=== PATIENT | female | born 1995 | race Caucasian/White ===

== ENCOUNTER 2016-12-21 06:00 | Inpatient (IN) | payer OTHER ==
[~2016-12-21] VITALS: Ht 167.6 cm; Wt 106.0 kg
[~2016-12-21 06:00] MED LIST: DICY10CA60 PO; ONDA4TAB35 PO; PREN-29 PO
[2016-12-21 06:47] VITALS: Ht 167.6 cm; Wt 106.0 kg
[2016-12-21 07:00] VITALS: BP 125/79; PULSE 86; RESP 16
[2016-12-21] MEDS ORDERED: AMPICILLIN 2 GM/NS (PMX) 100 ML IV ONE (07:00)
[2016-12-21] MEDS ORDERED: OXYTOCIN 30 UNITS/LR 500 ML IV SCH ×2 (07:00)
[2016-12-21] MEDS ORDERED: LIDOCAINE 1% (MPF) 30 ML INJ INJ PRN (07:00)
[2016-12-21] MEDS ORDERED: BUTORPHANOL 2 MG INJ IV PRN (07:00)
[2016-12-21] MEDS ORDERED: METHYLERGONOVINE 0.2 MG INJ IM PRN (07:00)
[2016-12-21] MEDS ORDERED: MISOPROSTOL 200 MCG TAB PR PRN (07:00)
[2016-12-21] MEDS ORDERED: OXYTOCIN 30 UNITS/LR 500 ML IV PRN (07:00)
[2016-12-21] MEDS ORDERED: CARBOPROST 250 MCG INJ IM PRN (07:00)
[2016-12-21] MEDS: LACTATED RINGER'S 1,000 ML IV SCH ×2 (07:02→14:56)
[2016-12-21 07:18] LABS: BASOPHILS % 0.1 % (0.0-2.0); EOSINOPHILS # 0.1 10^3/ul (0.0-0.5); EOSINOPHILS % 0.9 % (0.0-7.0); HEMATOCRIT 31.4 % (37.0-47.0); HEMOGLOBIN 10.7 g/dl (12.0-16.0); LYMPHOCYTES # 1.5 10^3/ul (0.8-2.9); LYMPHOCYTES % 22.3 % (15.0-51.0); MEAN CORPUSCULAR HEMOGLOBIN 28.9 pg (29.0-33.0); MEAN CORPUSCULAR HGB CONC 34.1 g/dl (32.0-37.0); MEAN CORPUSCULAR VOLUME 84.9 fl (82.0-101.0); MEAN PLATELET VOLUME 11.9 fl (7.4-10.4); MONOCYTE # 0.6 10^3/ul (0.3-0.9); MONOCYTES % 8.6 % (0.0-11.0); NEUTROPHIL # 4.6 10^3/ul (1.6-7.5); NEUTROPHILS % 67.1 % (39.0-77.0); PLATELET COUNT 213 10^3/UL (140-415); RED CELL DISTRIBUTION WIDTH 13.9 % (11.5-14.5); WHITE BLOOD COUNT 6.9 10^3/ul (4.8-10.8)
[2016-12-21] MEDS ORDERED: MINERAL OIL LIGHT 10 ML VIAL TOP ONE (07:30)
[2016-12-21 07:44] LABS: INR 0.93; PARTIAL THROMBOPLASTIN TIME 27.5 Sec (25.0-35.0); PROTIME 12.5 Sec (12.2-14.2)
[2016-12-21] MEDS ORDERED: DINOPROSTONE 10 MG VAG SUPP VAG ONE (09:30)
[2016-12-21] MEDS ORDERED: LACTATED RINGER'S 1,000 ML IV PRN (10:00)
[2016-12-21] MEDS: AMPICILLIN 1 GM/NS (PMX) 50 ML IV SCH ×4 (10:57→22:42)
--- NOTE | 2016-12-21 18:14 | HP ---
Date/Time of Note Date/Time of Note DATE: 12/21/16 TIME: 18:12 OB - History Hx of Present Free Text/Dictation Admitted for elective induction at 40 weeks Chief Complaint: None Last Menstrual Period: Feb 29, 2016 Estimated Due Date: Dec 21, 2016 : 2 Para: 1 Care: Good Care Obstetrical Complications: None Medical Complications: None Past Family/Social History * Past Medical, Surgical, Family and Obstetric Histories reviewed from chart. Blood Type: B+ Rubella: unknown RPR/VDRL: Negative GBS Status: Positive HBsAG: Negative OB Admission Exam Vital Signs Vital Signs Vital Signs Date Time Temp Pulse Resp B/P Pulse Ox O2 Delivery O2 Flow Rate FiO2 12/21/16 07:00 98.9 86 16 125/79 Room Air Physical Exam HEENT: WNL Heart: Rhythm Normal Lungs: Clear, Equal Abdomen: WNL Extremities: Normal Reflexes: Normal Cervical Dilatation: 1cm Effacement: 0% Station: -3 Membranes: Intact Heart Rate: 140's Accelerations: Accelerations Present Decelerations: No Decelerations Varibility: Marked Contractions on Admission: None Last 72 hours Lab Results CBC & BMP 12/21/16 06:51 OB Assessment/Plan Reason for admission: induction of labor Other Assessment: Term gestation Admitted for elective induction Induction Method: per Misoprostol Protocol LEBRON GLASGOW MD Dec 21, 2016 18:13
[2016-12-22] MEDS: LACTATED RINGER'S 1,000 ML IV SCH ×4 (00:30→15:30)
[2016-12-22] MEDS ORDERED: MINERAL OIL LIGHT 10 ML VIAL TOP SCH (03:00)
[2016-12-22] MEDS: AMPICILLIN 1 GM/NS (PMX) 50 ML IV SCH ×4 (03:04→15:32)
[2016-12-22] MEDS ORDERED: OXYTOCIN 30 UNITS/LR 500 ML IV SCH (06:00)
[2016-12-22 12:17] LABS: RUBELLA ANTIBODY - IGG 0.97 index
--- NOTE | 2016-12-22 16:20 | LDN ---
Date/Time of Note Date/Time of Note DATE: 12/22/16 TIME: 16:17 Delivery Summary Normal spontaneous vaginal delivery of viable infant over intact perineum Weeks of Gestation 40+ Placenta Delivered: Spontaneously, Intact & Complete Meconium: none Episiotomy: No Perineal laceration: 0 Laceration repair: Small periurethral laceration was repaired using 4-0 chromic Anesthesia type: Local Estimated blood loss: 300 Sponge & Needle done & correct: Yes All needle counts correct: Yes Any foreign bodies felt in the: No Problems: Delivery Information Sex Infant Sex: male Apgars 1 Minute: 9 5 Minute: 9 Suctioning Nose & mouth suctioned at rangel: Yes Delee suction performed: No Umbilical Cord Umbilical cord with: 3 Vessels Cord presentations: nuchal cord Nuchal cord present X: 1 Cord Blood was obtained: Yes Mother & Baby Disposition Disposition Mom & Baby to Maternity; Good: Yes (Mother and baby were recovered in good condition) Mom transferred to: Other (Maternity) Baby to NICU: No LEBRON GLASGOW MD Dec 22, 2016 16:20
[2016-12-22] MEDS ORDERED: IBUPROFEN 600 MG TAB PO ONE (17:30)
[2016-12-22] MEDS: LACTATED RINGER'S 1,000 ML IV* SCH ×2 (17:41→20:25)
[2016-12-22] MEDS: IBUPROFEN 600 MG TAB PO SCH ×2 (17:57→23:42)
[2016-12-22] MEDS ORDERED: OXYTOCIN 30 UNITS/LR 500 ML IV PRN (18:00)
[2016-12-22] MEDS ORDERED: MISOPROSTOL 200 MCG TAB PR PRN (18:00)
[2016-12-22] MEDS ORDERED: WITCH HAZEL/GLYCERIN PAD PR PRN (18:00)
[2016-12-22] MEDS ORDERED: METHYLERGONOVINE 0.2 MG INJ IM PRN (18:00)
[2016-12-22] MEDS ORDERED: LANOLIN 7 GM TUBE TOP PRN (18:00)
[2016-12-22] MEDS ORDERED: CARBOPROST 250 MCG INJ IM PRN (18:00)
[2016-12-22] MEDS ORDERED: BENZOCAINE 20% 56 ML SPRAY TOP PRN (18:00)
[2016-12-22] MEDS ORDERED: ZOLPIDEM 5 MG TAB PO PRN (18:00)
[2016-12-22] MEDS ORDERED: DIBUCAINE 1% 30 GM OINT PR PRN (18:00)
[2016-12-22] MEDS ORDERED: HYDROCODONE/APAP (5/325) TAB PO PRN ×2 (18:00)
[2016-12-22 18:10] VITALS: BP 107/62; PULSE 64; RESP 20
[2016-12-22 18:40] VITALS: BP 108/62; PULSE 67; RESP 20
[2016-12-22 19:20] VITALS: BP 115/58; PULSE 77; RESP 19
[2016-12-22] MEDS: MAGNESIUM HYDROXIDE 30ML CUP PO SCH (21:03)
[2016-12-22] MEDS: SENNA/DOCUSATE NA (8.6MG/50MG) TAB PO SCH (21:03)
[2016-12-23 04:00] VITALS: BP 117/61; PULSE 65; RESP 20
[2016-12-23] MEDS: IBUPROFEN 600 MG TAB PO SCH ×4 (05:41→23:46)
[2016-12-23 08:30] VITALS: BP 112/71; PULSE 60; RESP 18
[2016-12-23] MEDS: SENNA/DOCUSATE NA (8.6MG/50MG) TAB PO SCH ×2 (09:28→20:48)
[2016-12-23] MEDS: MAGNESIUM HYDROXIDE 30ML CUP PO SCH ×2 (09:28→20:48)
[2016-12-23] MEDS: LACTATED RINGER'S 1,000 ML IV* SCH ×2 (09:30→17:41)
[2016-12-23 10:54] LABS: BASOPHILS % 0.2 % (0.0-2.0); EOSINOPHILS # 0.1 10^3/ul (0.0-0.5); EOSINOPHILS % 0.6 % (0.0-7.0); HEMATOCRIT 30.8 % (37.0-47.0); HEMOGLOBIN 10.2 g/dl (12.0-16.0); LYMPHOCYTES # 1.6 10^3/ul (0.8-2.9); LYMPHOCYTES % 16.3 % (15.0-51.0); MEAN CORPUSCULAR HEMOGLOBIN 28.8 pg (29.0-33.0); MEAN CORPUSCULAR HGB CONC 33.1 g/dl (32.0-37.0); MEAN PLATELET VOLUME 12.3 fl (7.4-10.4); MONOCYTE # 0.8 10^3/ul (0.3-0.9); MONOCYTES % 8.3 % (0.0-11.0); NEUTROPHIL # 7.3 10^3/ul (1.6-7.5); PLATELET COUNT 233 10^3/UL (140-415); RED BLOOD COUNT 3.54 10^6/ul (4.20-5.40); WHITE BLOOD COUNT 9.9 10^3/ul (4.8-10.8)
[2016-12-23 12:26] VITALS: BP 110/70; PULSE 75; RESP 18
--- NOTE | 2016-12-23 13:51 | DS ---
Date/Time of Note Date/Time of Note Home next day DATE: 12/23/16 TIME: 13:50 Obstetrical Discharge Record Final Diagnosis Final Diagnosis: Term delivered Other Final Diagnosis Status post vaginal delivery Vaginal Delivery Obstetrical Delivery: Spontaneous, Laceration, Repaired Complications Augmentation: Yes Induction: Yes Condition on Discharge Physical Assessment Voiding: Yes Bowel Movement: Yes Breast: Soft, non-tender, Filling Fundus: Firm Abdomen and Incision: Soft bowel sounds present Episiotomy: Not applicable Calf Tenderness: No Patient Condition: Good LEBRON GLASGOW MD Dec 23, 2016 13:51
--- NOTE | 2016-12-23 13:52 | PD.PPDC ---
[employer] Discharge Instruction Provider Information Physician Information 21-year-old female had vaginal delivery Diagnosis Final Diagnosis: Status post vaginal delivery Condition Patient Condition: Good Diet Diet: Resume Regular Diet Activity/Restrictions Activity: Normal Activity May Shower Restrictions: Nothing in the Vagina Return to Work or School: Feb 08, 2017 Follow-up Follow-up with Physician: 4, Week/Weeks (In clinic) Return to clinic for OB Instructions: Breast Tenderness Depression LEBRON GLASGOW MD Dec 23, 2016 13:52
[2016-12-23] MEDS ORDERED: IBUP-1542 PO (13:53)
[2016-12-23 16:28] VITALS: BP 116/70; PULSE 64; RESP 18
[2016-12-23 20:00] VITALS: BP 120/76; PULSE 70; RESP 18
[2016-12-24 03:50] VITALS: BP 112/78; PULSE 58; RESP 20
[2016-12-24] MEDS: IBUPROFEN 600 MG TAB PO SCH ×2 (05:39→12:46)
[2016-12-24 08:00] VITALS: BP 112/75; PULSE 64; RESP 18
[2016-12-24] MEDS: MAGNESIUM HYDROXIDE 30ML CUP PO SCH (09:00)
[2016-12-24] MEDS ORDERED: VARICELLA VACCINE LIVE/PF 1,350 UNIT/0.5 ML ML SC* ONE (09:00)
[2016-12-24] MEDS: SENNA/DOCUSATE NA (8.6MG/50MG) TAB PO SCH (09:00)
[2016-12-24] MEDS ORDERED: DIPHTH/TET/ACEL PERTUSS (ADULT) 0.5 ML VIAL IM* ONE (09:00)
[2016-12-24] MEDS ORDERED: MEASLES,MUMPS,RUBELLA VACCINE INJ SC* ONE (09:00)
== END 2016-12-24 18:09 | disposition home or self-care (01) | DRG 775 ==
LOC: L-D 06:20 → PP1 12-22 18:14
PROVIDERS: ADMIT Obstetrics & Gynecology; ATTEND Obstetrics & Gynecology
PROC: 10E0XZZ Delivery of Products of Conception, External Approach (ICD-10-PCS; principal; 2016-12-22)
PROC: 0HQ9XZZ Repair Perineum Skin, External Approach (ICD-10-PCS; 2016-12-22)
PROC: 3E033VJ Introduction of Other Hormone into Peripheral Vein, Percutaneous Approach (ICD-10-PCS; 2016-12-22)
DX: O70.9 Perineal laceration during delivery, unspecified (principal); O48.0 Post-term pregnancy; Z3A.40 40 weeks gestation of pregnancy; O69.81X0 Labor and delivery complicated by cord around neck, without compression, not applicable or unspecified; Z37.0 Single live birth
CPT/HCPCS: 85025; 85610; 85730; 86592; 86762; 86900; 86901; 90715; 90716; J0290; J0595; J2590; J7120